=== PATIENT | female | born 1970 | race Caucasian/White ===

== ENCOUNTER 2018-09-02 15:54 | Emergency (ER) | payer MEDICAID, OTHER ==
[~2018-09-02] VITALS: Ht 160 cm; Wt 90.3 kg
[2018-09-02 15:59] VITALS: BP 133/71
--- NOTE | 2018-09-02 16:04 | NUR ---
PATIENT PRESENTS TO ED WITH C/O +PAIN/SWELLING TO RIGHT BREAST X 1 WEEK. REFERRED FROM PMD, PT STS DISCHARGE: "WATERY WITH BLOOD." PATIENT STATES PAIN OF 3/10 AT THIS TIME; VSS; PATIENT POSITIONED FOR COMFORT; HOB ELEVATED; BEDRAILS UP X2; BED DOWN. ER MD MADE AWARE OF PT STATUS.
--- NOTE | 2018-09-02 17:10 | NUR ---
DR. ALVAREZ PERFORMED BREAST EXAM AT BEDSIDE, CHAPERONED BY ME.
--- NOTE | 2018-09-02 17:27 | NUR ---
CULTURE COLLECTED FROM RIGHT BREAST, CALLED LAB TO FILM SOUND ENGINEER
[2018-09-02 18:35] VITALS: BP 128/69
--- NOTE | 2018-09-02 18:45 | NUR ---
Patient discharged with v/s stable. Written and verbal after care instructions given and explained. Patient alert, oriented and verbalized understanding of instructions. Ambulatory with steady gait. All questions addressed prior to discharge. ID band removed. Patient advised to follow up with PMD. Rx of IBU given. Patient educated on indication of medication including possible reaction and side effects. Opportunity to ask questions provided and answered.
== END 2018-09-02 18:45 | disposition home or self-care (01) ==
LOC: MED 15:54
DX: N61.0 Mastitis without abscess (principal)
CPT/HCPCS: 76641; 87070; 99284; Q0092

== ENCOUNTER 2023-01-13 19:48 | Emergency (ER) | payer OTHER ==
[~2023-01-13] VITALS: Ht 160 cm; Wt 88.5 kg
[2023-01-13 19:54] VITALS: BP 130/75; PULSE 76; RESP 18; TEMP 97; O2SAT 99
[2023-01-13] MEDS ORDERED: KETOROLAC 60 MG/2 ML VIAL IM ONE (20:05)
[2023-01-13] MEDS ORDERED: ACET-8905 PO (21:01)
[2023-01-13 21:15] VITALS: BP 119/80; PULSE 79; RESP 16; TEMP 97.8; O2SAT 100
== END 2023-01-13 21:15 | disposition home or self-care (01) ==
LOC: MED 19:48
DX: M25.512 Pain in left shoulder (principal); E11.9 Type 2 diabetes mellitus without complications
CPT/HCPCS: 96372; 99283; J1885